=== PATIENT | male | born 1985 | race Caucasian/White ===

== ENCOUNTER 2018-05-07 19:59 | Emergency (ER) | payer BC ==
[2018-05-07 21:38] LABS: ABSOLUTE BASOPHILS # (AUTO) 0.1 10^3/uL (0.0-0.2); ABSOLUTE LYMPHOCYTES (AUTO) 1.1 10^3/uL (0.5-4.7); ABSOLUTE MONOCYTES (AUTO) 0.5 10^3/uL (0.1-1.4); ABSOLUTE NEUT (AUTO) 8.6 10^3/uL (1.7-8.2); BASOPHILS % (AUTO) 0.6 % (0-2); EOSINOPHILS % (AUTO) 0.2 % (0-6); HEMATOCRIT 45.4 % (37.9-51.0); HEMOGLOBIN 15.9 g/dL (13.5-17.0); LYMPHOCYTES % (AUTO) 10.4 % (13-45); MEAN CORPUSCULAR HEMOGLOBIN 30.8 pg (27.0-33.4); MEAN CORPUSCULAR HGB CONC 35.1 g/dL (32.0-36.0); MEAN CORPUSCULAR VOLUME 88 fl (80-97); MONOCYTES % (AUTO) 5.1 % (3-13); PLATELET COUNT 285 10^3/uL (150-450); RED BLOOD COUNT 5.18 10^6/uL (4.35-5.55); RED CELL DISTRIBUTION WIDTH 12.6 % (11.5-14.0); SEGMENTED NEUTROPHILS % (AUTO) 83.7 % (42-78); TOTAL CELLS COUNTED % (AUTO) 100 %; WHITE BLOOD COUNT 10.3 10^3/uL (4.0-10.5)
[2018-05-07 21:42] LABS: APPEARANCE,URINE SLIGHTLY-CLOUDY; BILIRUBIN,URINE NEGATIVE (NEGATIVE); COLOR,URINE DARK YELLOW; GLUCOSE, URINE NEGATIVE (NEGATIVE); KETONES,URINE NEGATIVE (NEGATIVE); LEUKOCYTE ESTERASE,URINE NEGATIVE (NEGATIVE); NITRITE,URINE NEGATIVE (NEGATIVE); PROTEIN,URINE 30 mg/dL (NEGATIVE); URINE SPECIFIC GRAVITY 1.029
[2018-05-07 22:23] LABS: ALANINE AMINOTRANSFERASE 46 U/L (21-72); ALBUMIN 4.7 g/dL (3.5-5.0); ALKALINE PHOSPHATASE 71 U/L (38-126); ANION GAP 12 (5-19); ASPARTATE AMINO TRANSFERASE 34 U/L (17-59); BILIRUBIN,DIRECT 0.5 mg/dL (0.0-0.4); BILIRUBIN,TOTAL 0.9 mg/dL (0.2-1.3); BLOOD UREA NITROGEN 10 mg/dL (7-20); CALCIUM 9.7 mg/dL (8.4-10.2); CARBON DIOXIDE 27 mmol/L (22-30); CHLORIDE 103 mmol/L (98-107); GLUCOSE 114 mg/dL (75-110); LIPASE 31.9 U/L (23-300); POTASSIUM 4.7 mmol/L (3.6-5.0); SODIUM 142.3 mmol/L (137-145); TOTAL PROTEIN 8.6 g/dL (6.3-8.2)
[2018-05-07] MEDS ORDERED: RINGERS SOLUTION,LACTATED 1,000 ML IV ONE (23:46)
--- NOTE | 2018-05-07 23:47 | ER Document Report ---
ED Medical Screen (RME) - General Chief Complaint: Lower Abdominal Pain Stated Complaint: LOWER ABDOMINAL PAIN/FEVER Time Seen by Provider: 05/07/18 23:42 Mode of Arrival: Ambulatory Information source: Patient Notes: Patient presents complaining of intermittent abdominal pain for the past week. Patient does report fever today of 101.2. Patient is also had diarrhea for the past 4 days. Appetite has been normal. Patient denies any urinary symptoms. Patient was seen at [facility] and referred here for CT imaging. I have greeted and performed a rapid initial assessment of this patient. A comprehensive ED assessment and evaluation of the patient, analysis of test results and completion of the medical decision making process will be conducted by additional ED providers. TRAVEL OUTSIDE OF THE [place] IN LAST 30 DAYS: No - Related Data Allergies/Adverse Reactions: strawberry [[place]] Allergy (Severe, Verified 08/26/11 05:10) amoxicillin Allergy (Verified 05/07/18 20:07) Past Medical History Pulmonary Medical History: Reports: Hx Asthma Past Surgical History: Reports: Hx Myringotomy - Immunizations Hx Diphtheria, Pertussis, Tetanus Vaccination: Yes Physical Exam - Vital signs Vitals: Temp Pulse Resp BP Pulse Ox 99.3 F 98 20 132/83 H 95 05/07/18 20:21 05/07/18 20:21 05/07/18 20:21 05/07/18 20:21 05/07/18 20:21 - Abdominal Tenderness: Tender - Generalized lower abdominal tenderness Course - Vital Signs Vital signs: Temp Pulse Resp BP Pulse Ox 99.3 F 98 20 132/83 H 95 05/07/18 20:21 05/07/18 20:21 05/07/18 20:21 05/07/18 20:21 05/07/18 20:21 - Laboratory Result Diagrams: 05/07/18 21:15 05/07/18 21:15 Laboratory results interpreted by me: 05/07/18 05/07/18 05/07/18 21:15 21:15 21:15 Seg Neutrophils % 83.7 H Lymphocytes % 10.4 L Absolute Neutrophils 8.6 H Glucose 114 H Direct Bilirubin 0.5 H Total Protein 8.6 H Urine Protein 30 H Urine Blood SMALL H Urine Urobilinogen 4.0 H
--- NOTE | 2018-05-08 01:38 | ER Document Report ---
ED General - General Chief Complaint: Lower Abdominal Pain Stated Complaint: LOWER ABDOMINAL PAIN/FEVER Time Seen by Provider: 05/07/18 23:42 Mode of Arrival: Ambulatory Notes: Patient is a 32-year-old male with a past medical history of asthma who presents with 4 days of intermittent abdominal cramping, diarrhea and fever. He was seen at an urgent care earlier today, referred to the emergency department due to concerns of lower abdominal pain with fever. The patient describes the pain as a cramping, generalized, intermittent pain although none is currently present. Nothing improves or worsens the pain. He has been having several diarrheal bowel movements daily. He denies any mucus or blood in the diarrhea. No vomiting. No known sick contacts. No history of similar symptoms in the past. No history of abdominal surgeries. TRAVEL OUTSIDE OF THE [place] IN LAST 30 DAYS: No - Related Data Allergies/Adverse Reactions: strawberry [[place]] Allergy (Severe, Verified 05/08/18 02:08) amoxicillin Allergy (Verified 05/08/18 02:08) Past Medical History - General Information source: Patient - Social History Smoking Status: Never Smoker Frequency of alcohol use: None Drug Abuse: None Lives with: Spouse/Significant other Family History: Arthritis, CAD, Hyperlipidemia, Hypertension, Malignancy Pulmonary Medical History: Reports: Hx Asthma Past Surgical History: Reports: Hx Myringotomy - Immunizations Hx Diphtheria, Pertussis, Tetanus Vaccination: Yes Review of Systems - Review of Systems Notes: Constitutional: Negative for fever. HENT: Negative for sore throat. Eyes: Negative for visual changes. Cardiovascular: Negative for chest pain. Respiratory: Negative for shortness of breath. Gastrointestinal: Positive for abdominal pain and diarrhea Genitourinary: Negative for dysuria. Musculoskeletal: Negative for back pain. Skin: Negative for rash. Neurological: Negative for headaches, weakness or numbness. 10 point ROS negative except as marked above and in HPI. Physical Exam - Vital signs Vitals: Temp Pulse Resp BP Pulse Ox 99.3 F 98 20 132/83 H 95 05/07/18 20:21 05/07/18 20:21 05/07/18 20:21 05/07/18 20:21 05/07/18 20:21 Interpretation: Normal Notes: PHYSICAL EXAMINATION: GENERAL: Well-appearing, well-nourished and in no acute distress. HEAD: Atraumatic, normocephalic. EYES: Pupils equal round and reactive to light, extraocular movements intact, sclera anicteric, conjunctiva are normal. ENT: nares patent, oropharynx clear without exudates. Moderately dry mucous membranes. NECK: Normal range of motion, supple without lymphadenopathy LUNGS: Breath sounds clear to auscultation bilaterally and equal. No wheezes rales or rhonchi. HEART: Regular rate and rhythm without murmurs ABDOMEN: Soft, nontender, normoactive bowel sounds. No guarding, no rebound. No masses appreciated. EXTREMITIES: Normal range of motion, no pitting or edema. No cyanosis. NEUROLOGICAL: No focal neurological deficits. Moves all extremities spontaneously and on command. PSYCH: Normal mood, normal affect. SKIN: Warm, Dry, normal turgor, no rashes or lesions noted. Course - Re-evaluation Re-evalutation: 05/08/18 01:33 Patient presents with 4 days of of cramping, generalized, intermittent abdominal pain with associated diarrhea, had fever today at the local urgent care. On abdominal exam the patient has no localized abdominal tenderness anywhere. He actually denies any abdominal pain at the time of my assessment. Specifically he has no tenderness to the right lower quadrant, right upper quadrant or left lower quadrant. Clinical history is not consistent with an acute appendicitis, biliary pathology, pancreatitis, or acute diverticulitis. Appears to be most consistent with an acute colitis. Will begin treatment with ciprofloxacin and metronidazole. I have had a risks and benefits conversation with the patient regarding CT imaging of the abdomen and pelvis at this time. 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 We discussed the risks of radiation to the abdomen and pelvis. We discussed the alternative of close follow-up with their primary care physician for a recheck of the abdomen within 24 hours as well as reasons to return to the emergency department. After this conversation, the patient has elected to avoid CT imaging of the abdomen and pelvis at this time. They have capacity. They have verbalized the importance of close follow-up as well as reasons to return to the emergency department including worsening abdominal pain, fever, persistent vomiting, or any other symptoms that are worrisome to them. - Vital Signs Vital signs: Temp Pulse Resp BP Pulse Ox 99 F 76 15 146/81 H 96 05/08/18 02:20 05/08/18 02:20 05/08/18 02:20 05/08/18 02:20 05/08/18 02:20 - Laboratory Result Diagrams: 05/07/18 21:15 05/07/18 21:15 Laboratory results interpreted by me: 05/07/18 05/07/18 05/07/18 21:15 21:15 21:15 Seg Neutrophils % 83.7 H Lymphocytes % 10.4 L Absolute Neutrophils 8.6 H Glucose 114 H POC Glucose Direct Bilirubin 0.5 H Total Protein 8.6 H Urine Protein 30 H Urine Blood SMALL H Urine Urobilinogen 4.0 H 05/08/18 01:19 Seg Neutrophils % Lymphocytes % Absolute Neutrophils Glucose POC Glucose 116 H Direct Bilirubin Total Protein Urine Protein Urine Blood Urine Urobilinogen Discharge - Discharge Clinical Impression: Intermittent abdominal pain, Colitis Fever Qualifiers: Fever type: unspecified Qualified Code(s): R50.9 - Fever, unspecified Condition: Good Disposition: HOME, SELF-CARE Additional Instructions: You have been seen in the Emergency Department (ED) for abdominal pain. Your evaluation suggests a diagnosis of colitis and you are being treated with antibiotics for this diagnosis. Please follow up with your doctor as soon as possible regarding today's emergent visit and the symptoms that are bothering you. Return to the ED if your abdominal pain worsens or fails to improve, you develop bloody vomiting, bloody diarrhea, you are unable to tolerate fluids due to vomiting, fever greater than 101, or other symptoms that concern you. Forms: Return to Work
[2018-05-08] MEDS ORDERED: CIPROFLOXACIN HCL 500 MG TABLET PO ONE (01:40)
[2018-05-08] MEDS ORDERED: METRONIDAZOLE 500 MG TABLET PO ONE (01:40)
[2018-05-08 02:22] VITALS: BP 146/81
== END 2018-05-08 02:20 | disposition home or self-care (01) ==
LOC: ER 19:59
DX: K52.9 Noninfective gastroenteritis and colitis, unspecified (principal); R50.9 Fever, unspecified; J45.909 Unspecified asthma, uncomplicated; Z88.0 Allergy status to penicillin; Z91.018 Allergy to other foods
CPT/HCPCS: 36415; 80053; 81001; 82962; 83690; 85025; 96360; 99284